=== PATIENT | male | born 1990 | race American Indian/Alaskan Native ===

== ENCOUNTER 2017-03-28 12:58 | Emergency (ER) | payer OTHER, BC ==
--- NOTE | 2017-03-28 14:40 | C.PDOC ---
Time Seen by Provider: 03/28/17 13:24 Chief Complaint (Nursing): Lower Extremity Problem/Injury Past Medical History Vital Signs: Last Vital Signs Temp 98 F 03/28/17 13:14 Pulse 67 03/28/17 13:14 Resp 18 03/28/17 13:14 BP 128/86 03/28/17 13:14 Pulse Ox 97 03/28/17 13:14 Surgical History: Appendectomy (2005) Family History: States: Unknown Family Hx - Social History Hx Alcohol Use: Yes Hx Substance Use: No - Immunization History Hx Tetanus Toxoid Vaccination: No Hx Influenza Vaccination: Yes Hx Pneumococcal Vaccination: Yes ED Course And Treatment O2 Sat by Pulse Oximetry: 97 Disposition - Disposition Referrals: Lior Alegre MD [Staff Provider] - Disposition: HOME/ ROUTINE Disposition Time: 14:38 Condition: STABLE Additional Instructions: Rest and ice the area. Follow up with your PMD/bone doctor in 1-2 days. Return to ER if symptoms persist or worsen. Instructions: Foot Contusion (ED) Forms: [facility] (Sinhala) - Clinical Impression Clinical Impression: Toe contusion
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
[2017-03-28 15:14] VITALS: BP 120/79; PULSE 58; RESP 20; TEMP 98.3
[2017-03-28 15:58] VITALS: O2SAT 97
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
== END 2017-03-28 15:15 | disposition home or self-care (01) ==
LOC: C.ER 12:58
DX: S90.112A Contusion of left great toe without damage to nail, initial encounter (principal); S90.111A Contusion of right great toe without damage to nail, initial encounter; V09.9XXA Pedestrian injured in unspecified transport accident, initial encounter